=== PATIENT | female | born 1980 | race Caucasian/White ===

== ENCOUNTER 2018-11-03 01:54 | Inpatient (IN) | payer MEDICAID ==
[~2018-11-03] VITALS: Ht 157.5 cm; Wt 94.3 kg
[2018-11-03 01:58] VITALS: BP 150/87
--- NOTE | 2018-11-03 01:58 | NUR ---
TO BED # 07, AMBULATORY
[2018-11-03] MEDS ORDERED: NACL 0.9% 500 ML IV ONE (02:24)
--- NOTE | 2018-11-03 02:24 | NUR ---
PT PRESENTS TO ED WITH C/O RT FLANK PAIN X 3 DAYS. PT REPORTS N/V WITH PAIN X 1 DAY. PT DENIES ANY DYSURIA OR DIFFICULTY URINATING. PT PLACED INTO BED, PENDING MD MARTEL.
[2018-11-03] MEDS ORDERED: KETOROLAC 30 MG/ML VIAL IVP ONE (02:25)
[2018-11-03] MEDS ORDERED: ONDANSETRON 4 MG/2 ML VIAL IVP ONE (02:25)
[2018-11-03 03:01] LABS: BASOPHILS # (AUTO) 0.1 K/uL (0.00-0.22); EOSINOPHILS # (AUTO) 0.8 K/uL (0-0.4); EOSINOPHILS % (AUTO) 7.6 % (0.0-4.0); HEMATOCRIT 20.9 % (36-48); LYMPHOCYTES # (AUTO) 1.9 K/uL (2.5-16.5); LYMPHOCYTES % (AUTO) 17.7 % (20.5-51.1); MEAN CORPUSCULAR HEMOGLOBIN 24 pg (27-31); MEAN CORPUSCULAR HGB CONC 31 g/dL (33-37); MEAN CORPUSCULAR VOLUME 78.2 fL (80-94); MONOCYTES # (AUTO) 0.9 K/uL (0.8-1.0); MONOCYTES % (AUTO) 8.6 % (1.7-9.3); NEUTROPHILS # (AUTO) 6.9 K/uL (1.8-7.7); NEUTROPHILS % (AUTO) 65.1 % (42.2-75.2); PLATELET COUNT (AUTO) 376 K/uL (140-450); RED BLOOD CELL COUNT(AUTO) 2.68 MIL/uL (4.20-5.40); WHITE BLOOD COUNT (AUTO) 10.6 K/uL (4.8-10.8)
[2018-11-03 03:02] LABS: ANION GAP 11.4 (8-16); CARBON DIOXIDE 26.6 mmol/L (21-32)
[2018-11-03 03:09] LABS: TOTAL BILIRUBIN 0.1 mg/dL (0.0-1.0)
[2018-11-03 03:12] LABS: HEMOGLOBIN 6.4 g/dL (12.0-16.0); RED CELL DISTRIBUTION WIDTH 21.7 % (11.6-13.7)
[2018-11-03] MEDS ORDERED: ACETAMINOPHEN 325 MG TAB PO PRN (03:45)
[2018-11-03] MEDS ORDERED: ONDANSETRON 4 MG/2 ML VIAL IM/IVP PRN (03:45)
[2018-11-03] MEDS ORDERED: DOCUSATE SODIUM 100 MG GELCAP PO PRN (03:45)
[2018-11-03] MEDS ORDERED: HYDROcodone/APAP 7.5/325 MG 1 TAB PO PRN (03:45)
[2018-11-03 04:00] VITALS: BP 138/83
[2018-11-03] MEDS ORDERED: MORPHINE SULFATE 2 MG/ML SYR IVP PRN (04:05)
--- NOTE | 2018-11-03 04:21 | NUR ---
PT ARRIVE IN ICU, DR. FLYNN AT BEDSIDE TO SEE PATIENT AAOX4, ITALIAN SPEAKING, VSS BP 138/83, SATING 99%, RR=18, HR=98. ON ROOM AIR, SR ON SENIOR PROGRAM PLANNER. BOWEL SOUNDS ACTIVE, NO AMBROSE IN PLACE. STANDARD PRECAUTIONS MAINTAINED. PT ABLE TO AMBULATE FROM GURNEY TO ICU BED. FAMILY MEMBER AT BEDSIDE. DR. FLYNN AT BEDSIDE TO SEE PATIENT.
--- NOTE | 2018-11-03 04:27 | NUR ---
Patient will be admitted to care of DR DONIS. Admited to GAGANDEEP. Will go to room ICU-02. Belongings list completed. Report to TEA MAE.
[2018-11-03 04:50] LABS: PROTHROMBIN TIME 9.4 secs (10.8-13.4)
[2018-11-03] MEDS: NACL 0.9% 1,000 ML IV SCH (05:04)
[2018-11-03 05:13] LABS: CHOL/HDL RATIO 2.9 (1-4.5); FREE T4 (FREE THYROXINE) 0.98 ng/dL (0.76-1.46); MAGNESIUM 2.2 mg/dL (1.8-2.4); PHOSPHORUS 3.5 mg/dL (2.5-4.9); THYROID STIMULATING HORMONE 3.15 uIU/mL (0.34-3.74)
--- NOTE | 2018-11-03 05:22 | NUR ---
PATIENT EDUCATION PROVIDED REGARDING BLOOD TRANSFUSION AND CONSENT FORM HAS BEEN SIGNED. IVIS AT BEDSIDE TO COLLECT BLOOD SAMPLE FORM PATIENT. PT IS CALM AND COOPERATIVE.
--- NOTE | 2018-11-03 05:39 | NUR ---
PT UP AT BEDSIDE USING COMMODE, URINE IS CLEAR/YELLOW, NORMAL ODOR, 400ML OUTPUT. DENIES CONSTIPATION.
--- NOTE | 2018-11-03 06:50 | NUR ---
INFUSING STARTED AT 0610, VSS, PT DENIES ANY PAIN. ICE AND WATER PROVIDED PER PT REQUEST. PT IS RELAXED TALKING ON PHONE WITH VISITOR AT BEDSIDE, NO SIGNS OF DISTRESS, INFUSING BLOOD TO RIGHT AC PIV AT 100CC/HR.
--- NOTE | 2018-11-03 07:05 | NUR ---
RECEIVED BEDSIDE REPORT FROM [employer] STATISTICAL PROGRAMMER RNCARMELITA, FOR CONTINUITY OF CARE. PATIENT IS AAOX4, ABLE TO MAKE NEEDS KNOWN AND FOLLOWS COMMANDS, PATIENT IS MONGOLIAN SPEAKING BUT ABLE TO UNDERSTAND SIMPLE SLOVENIAN. PATIENT SKIN IS WARM, DRY, INTACT. SHE HAS PERIPHERAL IV SITE TO RFA, 18 GAUGE, ASYMPTOMATIC AND PATENT. PATIENT IS ON ROOM AIR, BREATHING EVEN AND UNLABORED. SR ON MONITOR, NO EDEMA NOTED. PATIENT DENIES ANY PAIN, N, V AT THIS TIME. HOB IS SEMI-HENNING, BED LOCKED, SAFETY PRECAUTIONS AND ALARMS ASSESSED AND ENFORCED. NO SIGNS OF DISTRESS NOTED. WILL CONTINUE TO MONITOR Addendum: 11/03/18 at 0800 by Yvette Paula RN PATIENT HAS 1 UNIT OF BLOOD RUNNING THROUGH PERIPHERAL IV SITE. NO SIGNS OF REACTION NOTED, PATIENT AFEBRILE, VITALS STABLE.
--- NOTE | 2018-11-03 07:14 | NUR ---
GAVE BEDSIDE REPORT TO MORNING SHIFT BLADE METCALF FOR CONTINUITY OF CARE.
[2018-11-03] MEDS ORDERED: DOCU-299 PO (07:33)
[2018-11-03] MEDS ORDERED: ASCO500T45 PO (07:33)
[2018-11-03] MEDS ORDERED: FERR325E14 PO (07:33)
[2018-11-03 08:00] VITALS: BP 148/91
--- NOTE | 2018-11-03 08:17 | NUR ---
BREAKFAST TRAY PROVIDED, PATIENT'S FRIEND AT BEDSIDE, NO SIGNS OF DISTRESS NOTED. 1 UNIT OF PRBC STILL TRANSFUSING, NO SIGNS OF REACTION NOTED, PATIENT TOLERATING WELL.
[2018-11-03] MEDS ORDERED: SODIUM FERRIC GLUCONATE 125 MG in NACL 0.9% 100 ML IV ONE (08:30)
[2018-11-03] MEDS: DOCUSATE SODIUM 100 MG GELCAP PO SCH (08:38)
[2018-11-03] MEDS: ASCORBIC ACID 500 MG TAB PO SCH (08:38)
--- NOTE | 2018-11-03 08:49 | NUR ---
ADMINISTERED SCHEDULED MEDS, PATIENT TOLERATED WELL.
--- NOTE | 2018-11-03 09:28 | NUR ---
TRANSFERRED PATIENT TO [facility] VIA BED. PATIENT WAS HOOKED TO YARD CLEANER, NO SIGNS OF DISTRESS NOTED. ENDORSED CONTINUITY OF CARE TO [facility] RNANTELMO.
[2018-11-03 09:30] VITALS: BP 138/93
--- NOTE | 2018-11-03 09:30 | NUR ---
RECEIVED BEDSIDE REPORT FROM CHIEF GREEN OFFICER DONALD. PT STABLE, AWAKE, ALERT AND ORIENTED X4. NO SIGNS OF DISTRESS NOTED. DENIES PAIN OR SOB. PT AMBULATED FROM THE WHEELCHAIR TO THE BED WITH STEADY GAIT. FAMILY AT THE BEDSIDE. NO REDNESS, SWELLING, OR INFLAMMATION NOTED ON IV SITE. BED IN LOWEST POSITION. CALL CHAMORRO WITHIN REACH. SAFETY MEASURES IN PLACE. PLAN OF CARE REVIEWED.
[2018-11-03] MEDS: PSYLLIUM 12.2 GM/PKT PO SCH (10:01)
--- NOTE | 2018-11-03 10:07 | NUR ---
ADMINISTERED SCHEDULED MEDICATIONS, PT TOLERATED WELL. NO OTHER NEEDS AT THIS TIME. FAMILY AT THE BEDSIDE.
[2018-11-03] MEDS ORDERED: BISACODYL 10 MG SUPP RC PRN (10:25)
--- NOTE | 2018-11-03 10:40 | NUR ---
URINE CULTURE COLLECTED PER MD ORDER.
[2018-11-03 11:43] LABS: BASOPHILS # (AUTO) 0.1 K/uL (0.00-0.22); EOSINOPHILS # (AUTO) 0.7 K/uL (0-0.4); WHITE BLOOD COUNT (AUTO) 8.6 K/uL (4.8-10.8)
[2018-11-03 12:00] VITALS: BP 144/86
[2018-11-03 12:30] LABS: ANION GAP 11.1 (8-16); CARBON DIOXIDE 26.3 mmol/L (21-32); CREATININE 0.7 mg/dL (0.6-1.3); POTASSIUM 4.4 mmol/L (3.5-5.1)
[2018-11-03 12:32] LABS: BASOPHILS % (AUTO) 0.6 % (0.0-2.0); EOSINOPHILS % (AUTO) 7.6 % (0.0-4.0); HEMATOCRIT 21.9 % (36-48); LYMPHOCYTES # (AUTO) 2.3 K/uL (2.5-16.5); LYMPHOCYTES % (AUTO) 26.2 % (20.5-51.1); MEAN CORPUSCULAR HEMOGLOBIN 25 pg (27-31); MEAN CORPUSCULAR HGB CONC 31 g/dL (33-37); MEAN CORPUSCULAR VOLUME 80.4 fL (80-94); MONOCYTES # (AUTO) 0.8 K/uL (0.8-1.0); MONOCYTES % (AUTO) 9.6 % (1.7-9.3); NEUTROPHILS # (AUTO) 4.8 K/uL (1.8-7.7); PLATELET COUNT (AUTO) 352 K/uL (140-450); RED BLOOD CELL COUNT(AUTO) 2.73 MIL/uL (4.20-5.40); RED CELL DISTRIBUTION WIDTH 20.9 % (11.6-13.7)
[2018-11-03 12:39] LABS: HEMOGLOBIN 6.8 g/dL (12.0-16.0)
[2018-11-03] MEDS ORDERED: diphenhydrAMINE 12.5 MG/5 ML UDC NG SCH (13:00)
[2018-11-03 13:02] LABS: BARBITURATE, URINE NEG. ng/ml (NEG <=200); BENZODIAZEPINE, URINE NEG. ng/mL (NEG <=200); CANNABINOID, URINE NEG. ng/mL (NEG <=50); COCAINE, URINE NEG. ng/mL (NEG <=300); OPIATE, URINE NEG. ng/mL (NEG <=2000); PHENCYCLIDINE SCREEN,URINE NEG. ng/mL (NEG <=25)
[2018-11-03 13:07] LABS: BILIRUBIN,URINE NEGATIVE (NEGATIVE); BLOOD, URINE TRACE-I (NEGATIVE); COLOR,URINE YELLOW (YELLOW); LEUKOCYTE ESTERASE ,URINE TRACE (NEGATIVE); NITRITE, URINE NEGATIVE (NEGATIVE); PH,URINE 5.5 (5.0-9.0); UGLUCOSE NEGATIVE (NEGATIVE)
[2018-11-03 13:11] LABS: APPEARANCE,URINE SLIGHTLY HAZY (CLEAR)
[2018-11-03 13:25] LABS: RBC,URINE 0-5 /HPF (0-5); WBC,URINE 0-5 /HPF (0-5)
[2018-11-03] MEDS: CYCLOBENZAPRINE 10 MG TAB PO SCH ×2 (13:55→17:39)
--- NOTE | 2018-11-03 13:56 | NUR ---
ADMINISTERED SCHEDULED MEDICATION, PT TOLERATED WELL. NO OTHER NEEDS AT THIS TIME.
--- NOTE | 2018-11-03 14:00 | NUR ---
BLOOD TRANSFUSION CONSENT SIGNED BY PATIENT.
[2018-11-03 16:00] VITALS: BP 138/93
--- NOTE | 2018-11-03 16:15 | NUR ---
BENADRYL GIVEN PRIOR TO BLOOD TRANSFUSION PER MD ORDER.
--- NOTE | 2018-11-03 16:20 | NUR ---
BLOOD TRANSFUSION STARTED. VITAL SIGNS TAKEN, PT STABLE. VERIFIED BLOOD TYPE WITH TEA PAREDES.
--- NOTE | 2018-11-03 16:35 | NUR ---
VITAL SIGNS TAKEN AGAIN 15 MINUTES AFTER STARTING BLOOD TRANSFUSION. NO SIGNS OF DISTRESS NOTED. PT DENIES SOB, ITCHING, OR CHEST PAIN. WILL CONTINUE TO MONITOR.
--- NOTE | 2018-11-03 17:05 | NUR ---
VITAL SIGNS TAKEN, PT STABLE. NO BLOOD TRANSFUSION REACTION NOTED.
--- NOTE | 2018-11-03 17:41 | NUR ---
ADMINISTERED SCHEDULED MEDICATION, PT TOLERATED WELL. NO OTHER NEEDS AT THIS TIME.
--- NOTE | 2018-11-03 19:25 | NUR ---
ENDORSED PT TO TEA GONZALEZ FOR CONTINUITY OF CARE. PT STABLE.
--- NOTE | 2018-11-03 19:26 | NUR ---
REPORT RECEIVED FROM AM NURSE AT BEDSIDE. PT IN STABLE CONDITION. INTRODUCED SELF TO PT. BOARD UPDATED. AAOX4. NO COMPLAINTS OF PAIN. NO SOB. AFEBRILE. PT CURRENTLY RECEIVING BLOOD FOR HGB OF 6.8 ESTIMATED TIME OF COMPLETION 1954. IV SITE R AC 20G CURRENTLY RUNNING BLOOD BUT ALSO HAS NS@60ML/HR PATENT AND INTACT. SKIN WARM, DRY, AND INTACT WITH NO OPEN WOUNDS. PT IS AMBULATORY. HAS AN ORDER FOR OCCULT BLOOD. PT HAS NOT HAD A BM YET. BED LOCKED IN LOW POSITION. CALL CHAMORRO WITHIN REACH. SAFETY PRECAUTIONS IN PLACE. ALL NEEDS MET AT THIS TIME.
--- NOTE | 2018-11-03 20:00 | NUR ---
BLOOD COMPLETED. BLOOD AND NS BAG PUT IN BIOHAZARD BAG AND THROWN IN BIOHAZARD CONTAINER. PT HAS NO ADVERSE REACTIONS TO COMPLETION OF BLOOD. V/S ALONG BASELINE OF PT NORMAL V/S. BP 137/83, HR 104, O2 SAT 97, TEMPERATURE 98.1, AND RR 18. 0/10 PAIN.
[2018-11-03] MEDS: KETOROLAC 30 MG/ML VIAL IVP PRN (20:56)
--- NOTE | 2018-11-03 20:56 | NUR ---
PT HAS 6/10 FLANK PAIN. TORADOL GIVEN IVP. PT TOLERATED WELL.
--- NOTE | 2018-11-03 21:05 | NUR ---
LAB IN TO DRAW CBC AFTER ADMINISTRATION OF 1 UNIT OF PRBC.
[2018-11-03 21:32] LABS: BASOPHILS # (AUTO) 0.1 K/uL (0.00-0.22); BASOPHILS % (AUTO) 0.9 % (0.0-2.0); EOSINOPHILS # (AUTO) 0.6 K/uL (0-0.4); EOSINOPHILS % (AUTO) 5.8 % (0.0-4.0); HEMATOCRIT 26.3 % (36-48); HEMOGLOBIN 8.3 g/dL (12.0-16.0); LYMPHOCYTES # (AUTO) 2.5 K/uL (2.5-16.5); LYMPHOCYTES % (AUTO) 23.9 % (20.5-51.1); MEAN CORPUSCULAR HEMOGLOBIN 25 pg (27-31); MEAN CORPUSCULAR HGB CONC 32 g/dL (33-37); MEAN CORPUSCULAR VOLUME 80.3 fL (80-94); MONOCYTES # (AUTO) 0.9 K/uL (0.8-1.0); MONOCYTES % (AUTO) 8.6 % (1.7-9.3); NEUTROPHILS # (AUTO) 6.3 K/uL (1.8-7.7); NEUTROPHILS % (AUTO) 60.8 % (42.2-75.2); PLATELET COUNT (AUTO) 372 K/uL (140-450); RED BLOOD CELL COUNT(AUTO) 3.28 MIL/uL (4.20-5.40); RED CELL DISTRIBUTION WIDTH 20.5 % (11.6-13.7); WHITE BLOOD COUNT (AUTO) 10.3 K/uL (4.8-10.8)
--- NOTE | 2018-11-03 22:20 | NUR ---
HGB LEVEL 8.3. MD NOTIFIED. NO CHANGE IN ORDERS.
--- NOTE | 2018-11-03 23:45 | NUR ---
PT SLEEPING COMFORTABLY IN BED SUPINE. NO S/S OF DISTRESS NOTED. NO COMPLAINTS OF PAIN. NO SOB. AFEBRILE. WILL CONTINUE TO MONITOR.
[2018-11-04] VITALS: BP 137/83
--- NOTE | 2018-11-04 01:15 | NUR ---
PT SLEEPING COMFORTABLY. NO S/S OF DISTRESS NOTED. NO COMPLAINTS OF PAIN. NO SOB. AFEBRILE. RESPIRATIONS EVEN, UNLABORED, AND WNL. WILL CONTINUE TO MONITOR.
--- NOTE | 2018-11-04 03:27 | NUR ---
PT SLEEPING COMFORTABLY IN BED RIGHT LATERAL. NO S/S OF DISTRESS NOTED. BREATHING EVEN, UNLABORED, AND WNL. WILL CONTINUE TO MONITOR.
[2018-11-04] MEDS: NACL 0.9% 1,000 ML IV SCH (03:43)
[2018-11-04] MEDS: KETOROLAC 30 MG/ML VIAL IVP PRN (04:32)
--- NOTE | 2018-11-04 04:32 | NUR ---
TORADOL GIVEN FOR 6/10 FLANK PAIN. PT TOLERATED WELL.
--- NOTE | 2018-11-04 06:00 | NUR ---
PT SLEEPING COMFORTABLY. NO S/S OF DISTRESS NOTED. WILL CONTINUE TO MONITOR.
--- NOTE | 2018-11-04 07:20 | NUR ---
REPORT GIVEN TO AM NURSE AT BEDSIDE. PT IN STABLE CONDITION.
[2018-11-04 08:00] VITALS: BP 150/70
[2018-11-04 08:08] LABS: BASOPHILS # (AUTO) 0.1 K/uL (0.00-0.22); BASOPHILS % (AUTO) 0.8 % (0.0-2.0); EOSINOPHILS # (AUTO) 0.5 K/uL (0-0.4); HEMATOCRIT 26.6 % (36-48); HEMOGLOBIN 8.5 g/dL (12.0-16.0); LYMPHOCYTES # (AUTO) 1.7 K/uL (2.5-16.5); MEAN CORPUSCULAR HEMOGLOBIN 26 pg (27-31); MEAN CORPUSCULAR HGB CONC 32 g/dL (33-37); MEAN CORPUSCULAR VOLUME 80.2 fL (80-94); MONOCYTES # (AUTO) 0.8 K/uL (0.8-1.0); MONOCYTES % (AUTO) 9.2 % (1.7-9.3); NEUTROPHILS # (AUTO) 5.3 K/uL (1.8-7.7); NEUTROPHILS % (AUTO) 63.5 % (42.2-75.2); PLATELET COUNT (AUTO) 391 K/uL (140-450); RED BLOOD CELL COUNT(AUTO) 3.32 MIL/uL (4.20-5.40); RED CELL DISTRIBUTION WIDTH 20.5 % (11.6-13.7); WHITE BLOOD COUNT (AUTO) 8.4 K/uL (4.8-10.8)
[2018-11-04] MEDS: DOCUSATE SODIUM 100 MG GELCAP PO SCH (09:05)
[2018-11-04] MEDS: ASCORBIC ACID 500 MG TAB PO SCH (09:05)
[2018-11-04] MEDS: FERROUS SULFATE 325 MG TABEC PO SCH ×2 (09:06→16:22)
[2018-11-04] MEDS: CYCLOBENZAPRINE 10 MG TAB PO SCH (09:06)
[2018-11-04 09:07] LABS: ANION GAP 10.9 (8-16); CARBON DIOXIDE 27.4 mmol/L (21-32); CREATININE 0.6 mg/dL (0.6-1.3); POTASSIUM 4.3 mmol/L (3.5-5.1)
[2018-11-04] MEDS: PSYLLIUM 12.2 GM/PKT PO SCH (09:07)
[2018-11-04 09:08] LABS: EOSINOPHILS % (AUTO) 6.5 % (0.0-4.0)
[2018-11-04] MEDS ORDERED: diphenhydrAMINE 50 MG/ML VIAL IVP SCH (11:15)
--- NOTE | 2018-11-04 13:40 | NUR ---
PATIENT HAS BEEN SCREENED AND CATEGORIZED HIGH NUTRITION RISK. PATIENT WILL BE SEEN WITHIN 1-2 DAYS OF ADMISSION. 11/04/18TRIXIE GUTIERREZ MBA, RD
[2018-11-04 16:00] VITALS: BP 139/83
--- NOTE | 2018-11-04 16:38 | NUR ---
PT DISCHARGED HOME FOR SELF CARE. PT DISCHARGE TEACHING DONE. PT VERBALIZED UNDERSTANDING OF TEACHING. ALL DISCHARGE PAPERWORK WAS SIGNED. IV REMOVED WITH TIP INTACT. WRIST BANDS REMOVED AND PLACED IN SHRED BIN. ALL PERSONAL BELONGING TAKEN WITH PT. PT WAS WHEELED OUT IN TO FAMILY AWAITING AT [facility].
[2018-11-04] MEDS ORDERED: PSYL0.5212 PO (16:50)
[2018-11-04] MEDS ORDERED: BISACODYL 10 MG SUPP RC SCH (18:00)
== END 2018-11-04 18:38 | disposition home or self-care (01) | DRG 532 ==
LOC: MED 01:54 → MIC 03:43 → MTU 09:10
PROVIDERS: ADMIT General Practice; ATTEND General Practice
PROC: 30233N1 Transfusion of Nonautologous Red Blood Cells into Peripheral Vein, Percutaneous Approach (ICD-10-PCS; principal; 2018-11-03)
DX: N92.0 Excessive and frequent menstruation with regular cycle (principal); N17.0 Acute kidney failure with tubular necrosis; D64.9 Anemia, unspecified; E44.0 Moderate protein-calorie malnutrition; I10 Essential (primary) hypertension; E86.1 Hypovolemia; J98.11 Atelectasis; R00.0 Tachycardia, unspecified; Z68.38 Body mass index [BMI] 38.0-38.9, adult
CPT/HCPCS: 36415; 71045; 71275; 80048; 80053; 80305; 81001; 82140; 82272; 82607; 82728; 82746; 83036; 83540; 83605; 83690; 83735; 83880; 84100; 84439; 84443; 85025; 85045; 85379; 85610; 85730; 86886; 86900; 86901; 86920; 87081; 96361; 96374; 96375; 99285; J1200; J1885; J2405; J2916; J7030; P9016; Q0092; Q0163; Q9967